=== PATIENT | female | born 1975 | race African-American/Black ===

== ENCOUNTER 2020-01-30 10:19 | Inpatient (IN) ==
--- NOTE | 2020-01-30 10:37 | PROVIDER DOCUMENTATION ---
HPI-General Adult - General Stated Complaint: KIDNEY PAIN Time Seen by Provider: 01/30/20 10:19 Source: patient Allergies/Adverse Reactions: Patient Allergies Allergy/AdvReac Type Severity Reaction Status Date / Time methylprednisolone Allergy SWELLING Verified 10/06/19 14:11 Home Medications: Home Medication List Medication Instructions Recorded Confirmed Last Taken Type Hydrochlorothiazide 25 mg PO DAILY 04/27/15 01/30/20 02/17/17 08:00 History Metformin [Glucophage] 500 mg PO BID 01/10/17 01/30/20 02/10/17 History Amlodipine Besylate [Norvasc] 5 mg PO DAILY #30 tab 12/26/17 01/30/20 Unknown Rx Clonazepam 1 tab PO BID 01/14/20 01/30/20 Unknown History Pregabalin 1 tab PO QHS 01/14/20 01/30/20 Unknown History Duloxetine HCl 60 mg PO DAILY 01/29/20 01/30/20 Unknown History - History of Present Illness -Gen Adult Nature of Presenting Problems: 44 yof with PMH of HTN, DM, Fibromyalgia c/o L abd, L flank and severe body aches for few days. Pt grandson and son, aged 5 & 7, had URI's recently but no other sick contacts. no hx of renal stones. She was seen here yesterday and reports she was supposed to be admitted due to UTI and fever in ER of 103. She reports she was also supposed to be tested for COVD 19 but did not stay and signed out AMA. She reports since leaving her symptoms have worsened with increasing back pain. She SOB, CP, N/V/D. She is anxious on exam Location of Pain/Injury: reports: abdomen (L abdomen and flank), generalized Pain Radiation: reports: no radiation Quality of Pain: reports: aching Severity: reports: severe Onset/Duration: reports: 4 days ago Timing: reports: still present Context/Activities at Onset: reports: none Modifying Factors: improves with: nothing Associated Symptoms: reports: back/neck pain, fever/chills, muscle aches. denies: chest pain, cough Recently seen or treated by another doctor?: Yes (here in ED on 01/28, left AMA) Review of Systems - Adult - REVIEW OF SYSTEMS - ADULT Constitutional: reports: chills, fever. denies: no symptoms reported, see HPI, fatique, night sweats, weight gain, weight loss, other Eyes: reports: no symptoms reported. denies: see HPI, discharge, dry eyes, decreased vision, blurred vision, double vision, eye pain, redness, other Ears, Nose, Mouth & Throat: reports: no symptoms reported. denies: see HPI, ear discharge, ear pain, hearing loss, tinnitus, epistaxis, sinus problem, nose pain, loose teeth, mouth/dental pain, mouth swelling, hoarseness, throat pain, throat swelling, other Cardiovascular: reports: no symptoms reported. denies: see HPI, chest pain, edema, heart murmur, irregular heart rate, orthopnea, palpitations, poor circ ulation, PND, syncope, other Respiratory: reports: no symptoms reported. denies: see HPI, chronic cough, cough, dyspnea on exertion, excessive sputum production, hemoptysis, pleurisy, shortness of breath, wheezing, other Gastrointestinal: reports: see HPI, abdominal pain. denies: no symptoms reported, hematemesis, constipation, diarrhea, difficulty swallowing, frequent heartburn, nausea, poor appetite, rectal bleeding, vomiting, other Genitourinary: reports: see HPI, flank pain, frequent UTI's. denies: no symptoms reported, dysuria, discharge, frequency, hematuria, hesitency, incontinence, urinary retention, urgency, other Musculoskeletal: reports: muscle aches. denies: no symptoms reported, see HPI, bone pain, back pain, frequent leg cramps, joint pain, joint swelling, muscle weakness, neck pain, other Integumentary: reports: no symptoms reported. denies: see HPI, hives, hair loss, itching, mole changes, nail changes, rash, skin sores/ulcer, skin thickening, other Neurological: reports: no symptoms reported. denies: see HPI, ataxia, dizziness/vertigo, headache/migraines, loss of balance, numbness, paresthesia, seizure, slurred speech, syncope, tremors, other Psychiatric: reports: no symptoms reported. denies: see HPI, anxiety, anti- depressant use, alcohol/drug dependence, depression, emotional problems, insomnia, panic attacks, suicidal thoughts, other Endocrine: reports: no symptoms reported. denies: see HPI, change in skin pigment, excessive sweating, goiter, cold intolerance, heat intolerance, increased hunger, increased thirst, polyuria, other Hematologic/Lymphatic: reports: no symptoms reported. denies: see HPI, blood clots, easy bruising, low blood count, lymphedema, prolonged bleeding, swollen lymph nodes, transfusions, other Allergic/Immunologic: reports: no symptoms reported. denies: see HPI, allergic reactions, allergic rhinitis, asthma, eczema, food allergy, frequent infections, hay fever, hives, positive PPD, urticaria, other Past History - Adult - PAST MEDICAL HISTORY-ADULT Review of Records: reports: Nursing Assessment Review, Social history reviewed & non-contributory. Major Childhood Illnesses: reports: denies history Cardiovascular: reports: HTN Respiratory: reports: asthma Gastrointestinal: reports: denies history Obstetrical/Gynecological: reports: denies history Genitourinary: reports: denies history Musculoskeletal: reports: chronic pain, fibromyalgia, intervertebral disc disease Neurological: reports: denies history Psychiatric: reports: anxiety, depression, ptsd Endocrine/Immune: reports: Diabetes, Sickle Cell disease (trait only) Other Conditions: reports: denies history Additional History: fibromyalgia - PRIOR SURGERIES/PROCEDURES Surgical/Procedure History: reports: BTL - IMMUNIZATION STATUS Childhood Immunizations: See Nurse Assessment Flu Vaccine: See Nurse Assessment - FAMILY HISTORY Family History: reviewed, not pertinent Physical Exam-General - PHYSICAL EXAM-ADULT Initial Vital Signs Reviewed: Yes - CONSTITUTIONAL General Appearance: alert, no apparent distress - EYES Eyes: PERRL/EOMI, pink conjunctivae - HEAD, EARS, NOSE, MOUTH & THROAT HENMT: normocephalic/atraumatic, moist mucous membranes, normal ENT inspection - NECK Neck: non-tender, full range of motion, supple - RESPIRATORY Respiratory: chest non-tender, lungs clear, normal breath sounds, no pleuratic chest pain, no respiratory distress, no accessory muscle use - CARDIOVASCULAR Cardiovascular: normal peripheral pulses, no edema, no gallop, no JVD, no murmur , tachycardia - GASTROINTESTINAL (ABDOMEN) Abdominal Exam: normal bowel sounds, soft, no organomegaly, no pulsatile mass, tenderness - LYMPHATIC Lymphatic: no adenopathy - MUSCULOSKELETAL Back Exam: CVA tenderness (L) Extremity: normal range of motion, non-tender, normal inspection, no pedal edema , no calf tenderness Peripheral Pulses: radial (R): 2+, radial (L): 2+ - SKIN Integumentary: normal color, normal turgor, warm/dry - NEUROLOGIC Neurologic: grossly normal - PSYCHIATRIC Psych/Mental Status: normal mood/affect, oriented x 3 Progress - PLAN OF CARE/RESULTS Progress/Plan/Lab Results: Orders Category Date Time Status Saline Loc NOW Care 01/30/20 10:30 Ordered BLOOD CULTURE [BLDCUL] Stat Lab 01/30/20 10:30 Uncollected CBC WITH ELECTRONIC DIFF [HEME] Stat Lab 01/30/20 10:30 Uncollected COMPREHENSIVE METABOLIC PANEL [CHEM] Stat Lab 01/30/20 10:30 Uncollected LACTATE, PLASMA [CHEM] Stat Lab 01/30/20 10:31 Uncollected UA NIMS W/REFLEX CULT [URINALYSIS] Stat Lab 01/30/20 10:31 Uncollected Result Diagrams: 01/30/20 11:04 01/30/20 11:04 - CT/MRI 1 CT Study: Abdomen, Pelvis Impression: See EMR Report (CT ABD/PELVIS W/IV CONT ONLY - 01/30/2020 INDICATION: abd pain, fever, flank pain COMPARISON: 06/21/2016 FINDINGS: The lung bases are clear and the heart size is normal. There is severe heterogeneous hypoenhancement of the left kidney. No renal stones or hydron ephrosis. All other abdominal organs are normal. No bowel obstruction or inflammation. Normal appendix. No severe constipation. Urinary bladder, uterus, and rectum are normal. There are moderate degenerative changes of the spine. No acute or suspicious bony lesion. IMPRESSION: Severe pyelonephritis of the left kidney. This exam was performed using automated exposure control, adjustment of mA or kV according to patient size, and/or use of iterative reconstruction technique Electronically signed by Abhi Gilbert 01/30/2020 12:42 PM 01/30/20 1242 Interpreting Physician: Abhi Gilbert MD Dictated Date/Time: 01/30/20 1241 cc: Annabel Freitas; Jb Guerrero) - CONSULTS/PCP/HOSPITALIST Notification #1 *Consult/PCP/Hospitalist*: Hospitalist paged @ [phone] Departure - Departure Date of Disposition Decision: 01/30/20 Time of Disposition Decision: 12:52 DIAGNOSIS: UTI (urinary tract infection), SIM (acute kidney injury), Pyelonephritis, Fever Disposition: ADMITTED INPATIENT 09 Certified Medical Emergency: Emergent Condition: Stable Referrals and Follow-Ups: Jb Guerrero [Primary Care Provider] - - Critical Care Note This patient required my direct & personal management of CC.: No Attestation - Physician/ REYNA Attestation Patient care was provided by Advanced Practice Provider:: Yes Advanced Practice Provider:: Annabel Freitas Advanced Practice Provider documentation review:: The Mid-level provider documentation, treatment plan and medical decision making was reviewed by the physician who agrees with all treatment and medical decision making by the MLP. The physician spent face to face time with patient:: No Advanced Practice Provider documentation review:: Supervising physician onsite and consulted in the evaluation and care of this patient. The physician did not have a face to face encounter with the patient.
[2020-01-30] MEDS ORDERED: NS 1,000 ML IV ONE (11:01)
[2020-01-30] MEDS ORDERED: TYLENOL PO ONE (11:02)
[2020-01-30] MEDS ORDERED: MORPHINE IV ONE (11:02)
[2020-01-30] MEDS ORDERED: ZOFRAN IV ONE (11:02)
[2020-01-30 11:28] LABS: BASO# 0.05 X1000 (0.0-0.2); BASO% 0.3 % (0.0-0.8); EOS# 0.02 X1000 (0.0-0.7); EOS% 0.1 % (0.0-10.0); HEMATOCRIT 33.7 % (37.0-47.0); HEMOGLOBIN 11.1 g/dL (12.0-16.0); IMM GRAN# 0.12 X1000 (0.0-0.04); IMM GRAN% 0.8 % (0.0-0.5); LYMPH# 0.79 X1000 (1.2-3.4); LYMPH% 5.4 % (20.5-51.1); MCH 24.7 PG (27-31); MCHC 32.9 g/dL (33-37); MCV 74.9 FL (81-99); MONO# 1.03 X1000 (0.11-0.59); MPV 10.3 FL (7.4-10.4); NEUT# 12.74 X1000 (1.4-6.5); NEUT% 86.4 % (42.2-75.2); PLT 223 X1000 (130-400); RDW 15.2 % (11.5-14.5); WBC 14.75 X1000 (4.8-10.8)
[2020-01-30] MEDS ORDERED: ROCEPHIN 2 GM in NS 50 ML IV ONE (11:32)
[2020-01-30 11:35] LABS: INR 1.1; PROTIME 14.3 Seconds (11.0-16.0)
[2020-01-30 11:36] LABS: PTT 33.7 Seconds (22.3-41.8)
[2020-01-30 11:45] LABS: ALB/GLOB RATIO 1.2; ALBUMIN 3.4 g/dL (3.5-5.0); CALCIUM 8.9 mg/dL (8.8-10.2); CREATININE 1.3 mg/dL (0.5-0.9); POTASSIUM 4.1 mmol/L (3.5-5.1); TOTAL BILIRUBIN 0.59 mg/dL (0.20-1.00); TOTAL PROTEIN 6.2 g/dL (6.3-8.3)
[2020-01-30] MEDS ORDERED: DILAUDID IV ONE (12:44)
--- NOTE | 2020-01-30 12:45 | Diag Imaging Result Doc PS360 ---
CT ABD/PELVIS W/IV CONT ONLY - 01/30/2020 INDICATION: abd pain, fever, flank pain COMPARISON: 06/21/2016 FINDINGS: The lung bases are clear and the heart size is normal. There is severe heterogeneous hypoenhancement of the left kidney. No renal stones or hydronephrosis. All other abdominal organs are normal. No bowel obstruction or inflammation. Normal appendix. No severe constipation. Urinary bladder, uterus, and rectum are normal. There are moderate degenerative changes of the spine. No acute or suspicious bony lesion. IMPRESSION: Severe pyelonephritis of the left kidney. This exam was performed using automated exposure control, adjustment of mA or kV according to patient size, and/or use of iterative reconstruction technique Electronically signed by Abhi Gilbert 01/30/2020 12:42 PM
[2020-01-30 12:49] LABS: URINE SOURCE CLEAN CATCH
[2020-01-30 12:51] LABS: BILIRUBIN URINE NEGATIVE (NEGATIVE); BLOOD URINE SMALL (NEGATIVE); COLOR YELLOW; GLUCOSE URINE NEGATIVE (NEGATIVE); KETONE URINE TRACE mg/dL (NEGATIVE); LEUKOCYTES URINE MODERATE (NEGATIVE); NITRITE URINE NEGATIVE (NEGATIVE); PH URINE 6.5; PROTEIN URINE 100 mg/dL (NEGATIVE); TURBIDITY URINE HAZY (CLEAR); UROBILINOGEN URINE 4 mg/dL (NORMAL)
[2020-01-30 12:56] LABS: UR EPITHELIAL CELLS <10 /HPF (<10); URINE BACTERIA 1+ /HPF; URINE RBC <10 /HPF (<10); URINE WBC 20-40 /HPF (<10)
[2020-01-30] MEDS ORDERED: KLONOPIN PO ONE (15:39)
[2020-01-30] MEDS: MORPHINE IV PRN ×2 (16:42→20:36)
[2020-01-30] MEDS: SODIUM CHLORIDE 0.9% INJ PRN (16:58)
[2020-01-30] MEDS: TYLENOL PO PRN (16:58)
[2020-01-30] MEDS: PHENERGAN IV PRN (16:58)
[2020-01-30] MEDS: NS 1,000 ML IV SCH (16:59)
[2020-01-30] MEDS: HUMALOG SUBQ SCH (17:24)
--- NOTE | 2020-01-30 20:10 | HISTORY AND PHYSICAL ---
CHIEF COMPLAINT: Fever, left flank pain. HISTORY OF PRESENT ILLNESS: This is a 44-year-old female with a history of fibromyalgia, chronic back pain, hypertension, and sickle cell trait. She presents to the emergency room for the second time in 24 hours complaining of generalized body aches, fevers as high as 103, along with some dysuria. She states that she has been diagnosed with a UTI by her primary care physician. She took a round of amoxicillin in November followed by another antibiotic that she does not remember the name of. She presented to the emergency room last night, was being evaluated, was approached about being tested for Coronavirus disease-19, having IV fluids and IV antibiotics and being admitted. She stated that she became anxious and that she was unable to stay because she has children, grandchildren, and foster children that she keeps at home, and she had to make sure that they were taken care of. She got her children situated and returned to the emergency room today. She had a temperature of 102.4 degrees on arrival to the emergency room. CT of the abdomen and pelvis with IV contrast revealed severe pyelonephritis of the left kidney. PAST MEDICAL HISTORY: Fibromyalgia, chronic back pain, diabetes mellitus type 2, hypertension, sickle cell trait. PAST SURGICAL HISTORY: Tubal ligation. SOCIAL HISTORY: She smokes about a half a pack a day. Denies alcohol or illicit drug use. She does have children, grandchildren, and foster children that she takes care of at home. ALLERGIES: Prednisone, which makes her throat and face swell and she does not breathe well. She does state it is a certain brand of prednisone. HOME MEDICATIONS: A list will be obtained by the nursing staff. Once verified, we will review and restart as appropriate. REVIEW OF SYSTEMS: Discussed with patient with pertinent positives stated in the HPI. She denied any syncope, dizziness, chest pain, palpitations, any nausea, vomiting, diarrhea, constipation, any black or bloody vomitus or stools, any hematuria, dysuria, frequency, urgency. PHYSICAL EXAMINATION: GENERAL: This is a 44-year-old female who is sitting up on the side of the bed in the ER in no distress. VITAL SIGNS: Blood pressure is 118/74 with a heart rate of 100, respirations are 18, temperature is 99.8 degrees, with room air saturations 98%. EYES: Pupils equal, round, react to light. EOMs are intact. Sclerae anicteric. HEAD: Normocephalic and atraumatic. ENT: Mucous membranes moist. NECK: Supple. Trachea midline. CARDIOVASCULAR: Regular rate and rhythm. S1, S2 appreciated. She has no lower extremity edema. Calves are nontender bilateral. PULMONARY: Breath sounds clear. No increased work of breathing noted. Chest rises and falls symmetrically with respiration. GASTROINTESTINAL: Abdomen is soft, nontender, and nondistended with bowel sounds in all 4 quadrants. GENITOURINARY: She has left CVA tenderness. Bladder is nontender to palpation. NEUROLOGIC: She is alert and oriented x3. SKIN: Warm and dry. LABS: WBC is 14.7 with hemoglobin 11, hematocrit 33.7, and platelets 223,000. Sodium 137, potassium 4.1, BUN 11, creatinine 1.3 with a glucose of 135. Urinalysis reveals less than 10 microscopic red blood cells, epithelial cells, with 1+ bacteria, and 20 to 40 microscopic white blood cells. Urine culture is pending. Blood cultures are pending. CT of the abdomen and pelvis reveals severe pyelonephritis of the left kidney. ASSESSMENT AND PLAN: This is a 44-year-old female with: 1. Severe pyelonephritis. Cultures are pending. Give antibiotic coverage of Rocephin with further antibiotics culture driven. 2. Flank pain. Morphine intravenously. 3. History of anxiety. We will continue her Klonopin. 4. Diabetes mellitus type 2. Pattern blood glucose with sliding scale insulin. 5. Hypertension. We will continue home medications as appropriate. 6. Check a CBC, BMP in the morning. She will be placed on a diabetic diet. Continue with intravenous hydration. 7. Gastric acid suppression with Prilosec. 8. Further treatments pending hospital course. Dictated by MARIYA Cruz for Rj Lester MD cc: MARIYA Cruz MD
[2020-01-30] MEDS: KLONOPIN PO SCH (20:36)
[2020-01-30] MEDS: LYRICA PO SCH (20:36)
[2020-01-31] MEDS: TYLENOL PO PRN ×2 (00:18→19:28)
[2020-01-31] MEDS: HUMALOG SUBQ SCH ×5 (00:25→21:34)
[2020-01-31] MEDS ORDERED: OFIRMEV 1000 MG/ISOTONIC SOLN 1,000 MG/100 ML BOTTLE IV ONE (00:30)
[2020-01-31] MEDS ORDERED: MOTRIN PO ONE (00:32)
[2020-01-31] MEDS: MORPHINE IV PRN ×3 (02:49→13:32)
[2020-01-31] MEDS: ZOSYN 3.375 GM in NS 50 ML IV SCH ×5 (02:50→21:34)
[2020-01-31] MEDS: NS 1,000 ML IV SCH ×3 (06:06→17:43)
[2020-01-31 07:30] LABS: BASO# 0.02 X1000 (0.0-0.2); BASO% 0.2 % (0.0-0.8); EOS# 0.03 X1000 (0.0-0.7); EOS% 0.4 % (0.0-10.0); HEMATOCRIT 30.1 % (37.0-47.0); HEMOGLOBIN 9.8 g/dL (12.0-16.0); IMM GRAN# 0.02 X1000 (0.0-0.04); IMM GRAN% 0.2 % (0.0-0.5); LYMPH% 11.9 % (20.5-51.1); MCH 24.6 PG (27-31); MCHC 32.6 g/dL (33-37); MCV 75.6 FL (81-99); MONO# 0.82 X1000 (0.11-0.59); MONO% 9.8 % (1.7-9.3); MPV 11.1 FL (7.4-10.4); NEUT% 77.5 % (42.2-75.2); PLT 217 X1000 (130-400); RBC 3.98 XMIL (4.2-5.4); RDW 15.4 % (11.5-14.5); WBC 8.39 X1000 (4.8-10.8)
[2020-01-31] MEDS: PRILOSEC PO SCH (07:41)
[2020-01-31 07:52] LABS: CALCIUM 8.5 mg/dL (8.8-10.2); CREATININE 1.2 mg/dL (0.5-0.9); POTASSIUM 4.3 mmol/L (3.5-5.1)
[2020-01-31] MEDS ORDERED: HYDROCHLOROTHIAZIDE PO SCH (09:00)
[2020-01-31] MEDS: NORVASC PO SCH (09:50)
[2020-01-31] MEDS: KLONOPIN PO SCH ×2 (09:50→20:33)
[2020-01-31] MEDS: TORADOL IV PRN ×2 (11:11→16:25)
[2020-01-31] MEDS ORDERED: ROCEPHIN 1 GM in NS 50 ML IV SCH (13:00)
[2020-01-31] MEDS: PHENERGAN IV PRN (16:16)
[2020-01-31] MEDS: SODIUM CHLORIDE 0.9% INJ PRN (16:16)
[2020-01-31] MEDS: DILAUDID IV PRN ×3 (17:42→23:49)
--- NOTE | 2020-01-31 17:50 | PROGRESS NOTE ---
DATE: 01/31/2020 SUBJECTIVE: The patient is still complaining of pain. OBJECTIVE: She is still having fevers. She was up to 102.4, 104.5. Cardiovascular: Regular rate and rhythm. Pulmonary: Bilateral breath sounds clear to auscultation. GI: Soft, nontender, nondistended. Bowel sounds were positive. LABORATORY DATA: White count is 8, hemoglobin and hematocrit 9 and 30, platelets 217,000, creatinine 1.2. Micro: No growth from urine and her blood culture was positive with gram- negative rods, which is not unexpected. PROBLEM LIST: 1. Acute pyelo of the left kidney, so we will continue antibiotics. The patient is on Zosyn. She has some mild renal insufficiency so I do not think we can use gentamicin or ibuprofen. I am going to hold her hydrochlorothiazide. I am going to hold her Toradol. She is on Tylenol as an antipyretic. She is on morphine, but I am not really sure that is going to be effective enough so we will use Dilaudid and see how she does. 2. Acute on chronic renal insufficiency. I am going to continue hydration because I think she needs fluids, especially with her persistent fevers. I think if she is still has persistent fevers, there is no clear abscesses as read on the CT scan, but there was heterogenous enhancement. We will need to either re-image her or consider urology consult at the discretion of the covering physician. 3. Diabetes. We will continue to monitor blood sugars, trying to keep them under 200. She is on a sliding scale. Her A1c, we have not analyzed and her blood sugars actually seem fairly well controlled. cc: Rj Lester MD
[2020-01-31] MEDS: LYRICA PO SCH (20:33)
[2020-01-31] MEDS ORDERED: NICODERM PATCH TD PRN (21:04)
[2020-02-01] MEDS: OFIRMEV 1000 MG/ISOTONIC SOLN 1,000 MG/100 ML BOTTLE IV PRN ×2 (02:48→10:39)
[2020-02-01] MEDS: NS 1,000 ML IV SCH ×3 (02:51→21:00)
[2020-02-01] MEDS: DILAUDID IV PRN ×5 (03:34→17:43)
[2020-02-01] MEDS: ZOSYN 3.375 GM in NS 50 ML IV SCH ×2 (03:34→09:46)
[2020-02-01] MEDS: PRILOSEC PO SCH (06:35)
[2020-02-01] MEDS: HUMALOG SUBQ SCH ×4 (06:38→20:59)
[2020-02-01 07:15] LABS: BASO# 0.03 X1000 (0.0-0.2); BASO% 0.3 % (0.0-0.8); EOS# 0.05 X1000 (0.0-0.7); EOS% 0.4 % (0.0-10.0); HEMATOCRIT 31.1 % (37.0-47.0); HEMOGLOBIN 10.1 g/dL (12.0-16.0); IMM GRAN# 0.03 X1000 (0.0-0.04); IMM GRAN% 0.3 % (0.0-0.5); LYMPH# 1.55 X1000 (1.2-3.4); LYMPH% 13.9 % (20.5-51.1); MCH 24.5 PG (27-31); MCHC 32.5 g/dL (33-37); MCV 75.3 FL (81-99); MONO# 1.48 X1000 (0.11-0.59); MONO% 13.3 % (1.7-9.3); MPV 10.9 FL (7.4-10.4); NEUT# 8.02 X1000 (1.4-6.5); NEUT% 71.8 % (42.2-75.2); PLT 226 X1000 (130-400); RBC 4.13 XMIL (4.2-5.4); RDW 15.6 % (11.5-14.5); WBC 11.16 X1000 (4.8-10.8)
[2020-02-01 07:45] LABS: AGAP 14; BUN 10 mg/dL (8-22); CALCIUM 8.2 mg/dL (8.8-10.2); CHLORIDE 104 mmol/L (98-107); COSMO 279; CREATININE 1.1 mg/dL (0.5-0.9); ESTIMATED GFR > 60; GLUCOSE 142 mg/dL (70-104); POTASSIUM 3.8 mmol/L (3.5-5.1); SODIUM 139 mmol/L (136-145); TCO2 21 mmol/L (25-35)
[2020-02-01 07:50] LABS: HEMOGLOBIN A1C 5.4 % (4.8-6.0)
[2020-02-01] MEDS ORDERED: NITROGLYCERIN SL PRN (09:36)
[2020-02-01] MEDS: NORVASC PO SCH (09:46)
[2020-02-01] MEDS: CYMBALTA PO SCH (09:46)
[2020-02-01] MEDS: KLONOPIN PO SCH ×2 (09:46→20:58)
[2020-02-01] MEDS: XOPENEX NEB INH SCH ×4 (10:50→23:50)
[2020-02-01] MEDS: MAXIPIME 2 GM/NS 2 GM/100 ML IVPB IV SCH (13:08)
--- NOTE | 2020-02-01 13:24 | Diag Imaging Result Doc PS360 ---
EXAM: SHOULDER-LEFT HISTORY: pain TECHNIQUE: Two views COMPARISON: 01/29/2015 FINDINGS: No fracture. No dislocation. Mild narrowing at the acromioclavicular joint. IMPRESSION: Mild acromioclavicular arthritis Electronically signed by Seng Macedo 02/01/2020 1:21 PM
--- NOTE | 2020-02-01 15:51 | Diag Imaging Result Doc PS360 ---
EXAM: CHEST-2 VIEWS HISTORY: required to have current Chest XRAY to have a TECHNIQUE: Two views COMPARISON: 01/29/2020 FINDINGS: The lungs are well expanded. The heart is not enlarged. The vessels are not distended. There are no infiltrates. No pleural effusions. IMPRESSION: No acute abnormality. Electronically signed by Seng Macedo 02/01/2020 3:49 PM
--- NOTE | 2020-02-01 16:06 | Diag Imaging Result Doc PS360 ---
EXAM: LUNG SCAN / VQ HISTORY: pleuritic TECHNIQUE: Perfusion lung scan COMPARISON: Recent chest x-ray FINDINGS: 5.8 mCi MAA given intravenously. Perfusion images obtained in multiple projections. No wedge shaped perfusion defects. IMPRESSION: No pulmonary emboli. Electronically signed by Seng Macedo 02/01/2020 4:03 PM
[2020-02-01] MEDS: PERCOCET-5 PO PRN ×2 (16:16→20:58)
--- NOTE | 2020-02-01 16:51 | EKG Report ---
Test Performed on : 02/01/2020 09:51:27 AM Test Reason : CP Blood Pressure : / mmHG Vent. Rate : 095 BPM Atrial Rate : 095 BPM P-R Int : 156 ms QRS Dur : 078 ms QT Int : 330 ms P-R-T Axes : 055 071 001 degrees QTc Int : 414 ms Normal sinus rhythm. Normal ECG When compared with ECG of 20-MAR-2019 03:04, No significant change was found Confirmed by Maxine JAQUEZ, Boo Lomax ([id number]) on 02/03/2020 9:25:03 AM
--- NOTE | 2020-02-01 17:51 | PROGRESS NOTE ---
DATE: 02/01/2020 SUBJECTIVE: The patient is resting comfortably. She complains of fever and left shoulder pain that extends into the chest. OBJECTIVE: Vital signs: T-max 102.4 degrees, blood pressure 145/65, heart rate 101, respirations 21, O2 saturation 96% on room air. In general this is a morbidly obese female, sitting up in bed in no acute distress.Heart: S1, S2 normal. Tachycardic. Lungs clear to auscultation bilaterally. Abdomen: Positive bowel sounds. Soft, nontender, nondistended. Extremities: No edema, no cyanosis. Neurologic: The patient is alert and oriented x3. LABORATORY DATA: White blood cell count 11, hemoglobin 10, hematocrit 31, platelets 226,000. Sodium 139, BUN 10, creatinine 1.1, glucose 142. Hemoglobin A1c 5.4. Calcium 8.2. DIAGNOSTIC DATA: Shoulder x-ray shows mild arthritis. ASSESSMENT AND PLAN: 1. Sepsis with severe left pyelonephritis. So far the urine culture shows no growth; however, one of the blood cultures is growing gram-negative rods. We will switch the patient to cefepime and await the final culture results. 2. Bacteremia. Continue on Cefepime. Will order repeat blood cultures. 3. Left shoulder pain. The x-ray done reveals arthritis; however, the patient states that she cannot lift her arm above her head. She may need an MRI of the shoulder to further assess the joint and the ligaments. 4. Morbid obesity. Aware. 5. Hypertension. Continue on the current antihypertensive regimen. 6. Anxiety disorder. Continue on clonazepam. 7. Deep vein thrombosis prophylaxis. We will start the patient on heparin. cc: Maddy Lopez MD [facility]
[2020-02-01] MEDS: HEPARIN SUBQ SCH (20:59)
[2020-02-01] MEDS: LYRICA PO SCH (20:59)
[2020-02-02] MEDS: DILAUDID IV PRN ×6 (00:01→22:33)
[2020-02-02] MEDS: TYLENOL PO PRN (00:01)
[2020-02-02] MEDS: MAXIPIME 2 GM/NS 2 GM/100 ML IVPB IV SCH ×2 (00:01→14:54)
[2020-02-02] MEDS: NS 1,000 ML IV SCH ×3 (00:41→20:36)
[2020-02-02] MEDS: PERCOCET-5 PO PRN ×4 (00:55→20:07)
[2020-02-02] MEDS: PHENERGAN IV PRN (00:55)
[2020-02-02] MEDS: XOPENEX NEB INH SCH ×6 (03:34→23:32)
[2020-02-02] MEDS: HUMALOG SUBQ SCH ×4 (06:23→20:07)
[2020-02-02] MEDS: PRILOSEC PO SCH (06:23)
[2020-02-02] MEDS: HEPARIN SUBQ SCH ×3 (06:23→22:00)
[2020-02-02 07:05] LABS: BASO# 0.03 X1000 (0.0-0.2); BASO% 0.3 % (0.0-0.8); EOS# 0.05 X1000 (0.0-0.7); EOS% 0.5 % (0.0-10.0); HEMATOCRIT 28.4 % (37.0-47.0); HEMOGLOBIN 9.2 g/dL (12.0-16.0); IMM GRAN# 0.04 X1000 (0.0-0.04); IMM GRAN% 0.4 % (0.0-0.5); LYMPH# 1.94 X1000 (1.2-3.4); LYMPH% 19.7 % (20.5-51.1); MCH 24.4 PG (27-31); MCHC 32.4 g/dL (33-37); MCV 75.3 FL (81-99); MONO# 1.02 X1000 (0.11-0.59); MONO% 10.3 % (1.7-9.3); MPV 10.8 FL (7.4-10.4); NEUT# 6.79 X1000 (1.4-6.5); NEUT% 68.8 % (42.2-75.2); PLT 243 X1000 (130-400); RBC 3.77 XMIL (4.2-5.4); RDW 15.6 % (11.5-14.5); WBC 9.87 X1000 (4.8-10.8)
[2020-02-02 07:18] LABS: AGAP 11; ALB/GLOB RATIO 0.8; ALBUMIN 2.7 g/dL (3.5-5.0); ALKALINE PHOSPHATASE 96 U/L (32-104); BUN 6 mg/dL (8-22); CALCIUM 8.7 mg/dL (8.8-10.2); CHLORIDE 101 mmol/L (98-107); COSMO 266; CREATININE 0.9 mg/dL (0.5-0.9); ESTIMATED GFR > 60; GLUCOSE 108 mg/dL (70-104); GOT 21 U/L (10-30); GPT 23 U/L (10-36); SODIUM 134 mmol/L (136-145); TCO2 22 mmol/L (25-35); TOTAL BILIRUBIN 0.29 mg/dL (0.20-1.00); TOTAL PROTEIN 6.1 g/dL (6.3-8.3)
[2020-02-02 07:35] LABS: ANISOCYTOSIS 3+; HYPOCHROM 2+; LYMPHS 19 % (21-51); MICROCYTOSIS 3+; MONO 10 % (1-9); SEGS 68 % (42-75)
[2020-02-02 07:36] LABS: POIKILOCYTOSIS 1+
[2020-02-02] MEDS: KLONOPIN PO SCH ×2 (08:23→20:07)
[2020-02-02] MEDS: CYMBALTA PO SCH (08:23)
[2020-02-02] MEDS: NORVASC PO SCH (08:23)
[2020-02-02] MEDS: CULTURELLE PO SCH (08:27)
[2020-02-02] MEDS: OFIRMEV 1000 MG/ISOTONIC SOLN 1,000 MG/100 ML BOTTLE IV PRN (11:11)
--- NOTE | 2020-02-02 11:21 | Diag Imaging Result Doc PS360 ---
EXAM: US RENAL 2 (RETROPER) COMPLETE - 02/02/2020 HISTORY: severe pyelonephritis TECHNIQUE: Bilateral renal ultrasound COMPARISON: None. FINDINGS: The right kidney measures 13.1 x 6.1 x 5.1 cm in size. The left kidney measures 14.1 x 6.9 x 6.6 cm in size. The bilateral kidneys demonstrate blood flow signal on Doppler images. There is no renal mass or stone identified. There is no hydronephrosis or perinephric fluid identified. The urinary bladder is evaluated due to contracted state. IMPRESSION: Mild enlargement of left kidney relative to the right. No evidence of hydronephrosis or perinephric fluid Electronically signed by Patrick Garcia 02/02/2020 11:19 AM
--- NOTE | 2020-02-02 16:35 | PROGRESS NOTE ---
DATE: 02/02/2020 SUBJECTIVE: The patient complains of left shoulder pain and a poor appetite. OBJECTIVE: Vital Signs: Temperature 99.1 degrees, blood pressure 141/76, heart rate 110, respirations 20, O2 saturation 97% on room air, intake 5 L, output 1.1 L. General: This is a morbidly obese female lying in bed in no acute distress. Heart: S1, S2. Normal. Tachycardic. Lungs: Equal air entry bilaterally. No wheezing, no rales, no rhonchi. Abdomen: Positive bowel sounds. Soft, obese, nontender, nondistended. Extremities: No edema, no cyanosis, no calf tenderness. Neuro: The patient is alert and oriented x3. LABS: White blood cell count 9.8, hemoglobin 9.2, hematocrit 28, platelets 243,000. Sodium 134, potassium 4, chloride 101, CO2 22, BUN 6, creatinine 0.9, glucose 108. Renal ultrasound shows mild enlargement of the left kidney relative to the right. No evidence of hydronephrosis or perinephric fluid. ASSESSMENT AND PLAN: 1. Sepsis secondary to severe left pyelonephritis. The blood culture grew out Escherichia coli. The urine culture shows no growth. Will continue with cefepime. 2. Bacteremia secondary to Escherichia coli. Will continue on cefepime. Repeat blood cultures were obtained yesterday. Will follow up on the culture results. 3. Left shoulder pain. Unchanged. The x-ray shows arthritis. The patient may need an MRI of the shoulder to further assess the tendons and ligaments. 4. Morbid obesity. Aware. 5. Anxiety disorder. Continue on clonazepam. 6. Diabetes mellitus type 2. Diet controlled. 7. Deep vein thrombosis prophylaxis. Continue on heparin. cc: MD ARIAS Stephens
[2020-02-02] MEDS: LYRICA PO SCH (20:07)
[2020-02-03] MEDS: NS 1,000 ML IV SCH ×3 (03:05→18:31)
[2020-02-03] MEDS: DILAUDID IV PRN ×6 (03:10→22:31)
[2020-02-03] MEDS: MAXIPIME 2 GM/NS 2 GM/100 ML IVPB IV SCH ×2 (03:13→17:48)
[2020-02-03] MEDS: XOPENEX NEB INH SCH ×6 (03:31→23:30)
[2020-02-03] MEDS: PERCOCET-5 PO PRN ×3 (04:09→15:12)
[2020-02-03] MEDS: HEPARIN SUBQ SCH ×3 (04:09→21:23)
[2020-02-03] MEDS: PRILOSEC PO SCH ×2 (04:10→06:03)
[2020-02-03] MEDS: HUMALOG SUBQ SCH ×4 (06:03→22:03)
--- NOTE | 2020-02-03 07:07 | Diag Imaging Result Doc PS360 ---
EXAM: CHEST-1 VIEW INDICATION: dyspnea TECHNIQUE: One view COMPARISON: 02/01/2020 FINDINGS: The lungs are grossly clear. There is no discrete pleural fluid collection or pneumothorax. The cardiomediastinal silhouette and central vasculature are grossly unremarkable. IMPRESSION: No evidence of acute pathology by plain radiograph. Electronically signed by Dennis Rodriguez 02/03/2020 7:05 AM
[2020-02-03 07:41] LABS: BASO# 0.05 X1000 (0.0-0.2); BASO% 0.5 % (0.0-0.8); HEMATOCRIT 26.8 % (37.0-47.0); HEMOGLOBIN 8.7 g/dL (12.0-16.0); IMM GRAN# 0.09 X1000 (0.0-0.04); IMM GRAN% 0.9 % (0.0-0.5); LYMPH# 1.78 X1000 (1.2-3.4); LYMPH% 18.1 % (20.5-51.1); MCH 24.2 PG (27-31); MCHC 32.5 g/dL (33-37); MCV 74.7 FL (81-99); MONO# 1.07 X1000 (0.11-0.59); MONO% 10.9 % (1.7-9.3); MPV 10.8 FL (7.4-10.4); NEUT# 6.76 X1000 (1.4-6.5); NEUT% 68.6 % (42.2-75.2); PLT 298 X1000 (130-400); RBC 3.59 XMIL (4.2-5.4); RDW 15.4 % (11.5-14.5); WBC 9.85 X1000 (4.8-10.8)
[2020-02-03 08:12] LABS: AGAP 13; BUN 7 mg/dL (8-22); CALCIUM 8.3 mg/dL (8.8-10.2); CHLORIDE 105 mmol/L (98-107); COSMO 277; CREATININE 0.7 mg/dL (0.5-0.9); ESTIMATED GFR > 60; GLUCOSE 92 mg/dL (70-104); POTASSIUM 4.2 mmol/L (3.5-5.1); SODIUM 140 mmol/L (136-145); TCO2 22 mmol/L (25-35)
[2020-02-03 08:13] LABS: MAGNESIUM 2.3 mg/dL (1.5-2.7)
[2020-02-03 08:45] LABS: BANDS 4 % (0-1); LYMPHS 20 % (21-51); MONO 6 % (1-9); SEGS 70 % (42-75)
[2020-02-03 08:46] LABS: LARGE PLATELETS 1+; MICROCYTOSIS 3+; TARGET CELLS 1+
[2020-02-03 08:47] LABS: FERRITIN 249 ng/mL (13-150)
[2020-02-03] MEDS: KLONOPIN PO SCH ×2 (09:41→21:24)
[2020-02-03] MEDS: NORVASC PO SCH (09:42)
[2020-02-03] MEDS: CULTURELLE PO SCH (09:42)
[2020-02-03] MEDS: CYMBALTA PO SCH (09:42)
--- NOTE | 2020-02-03 09:52 | Diag Imaging Result Doc PS360 ---
EXAM: MRI UPPER EXT W/O CONTRA-LEFT 02/03/2020 HISTORY: left arm pain/possible rotator cuff tear TECHNIQUE: Axial 2-D merge, coronal proton density fat sat, T1, STIR, T2 fat sat sagittal. COMMENT: There are mild degenerative changes in the acromioclavicular joint. There are subcortical cysts present near the greater tuberosity. The long head of the biceps tendon is intact. The supraspinatus and infraspinatus muscles and tendons are intact. There is slight irregularity of the anterior glenoid labrum. The possibility of a small tear cannot be excluded. There is very little fluid in the joint space. There is no evidence of bone marrow edema. IMPRESSION: Mild degenerative changes. Questionable anterior glenoid labral tear. Electronically signed by Mohan Gudino 02/03/2020 9:50 AM
--- NOTE | 2020-02-03 11:58 | ORTHOPAEDICS CONSULTATION ---
DATE: 02/03/2020 REASON FOR CONSULTATION: Left shoulder pain. HISTORY OF PRESENT ILLNESS: Ms. Blanco is a 44-year-old female with a history of fibromyalgia, chronic back pain, hypertension, and a sickle cell trait. She originally presented to the [facility] Emergency Room complaining of generalized body aches and elevated fevers. She was diagnosed with a UTI and has been getting antibiotic treatment since then. While she has been in the hospital receiving IV antibiotics, she started complaining of left shoulder pain. She denied any fall or injury to the shoulder. She denies a history of shoulder pain. She states it just started bothering her in the last 2 days. She has been unable to raise the arm over her head. Otherwise, she can do some things with the shoulder. Orthopedics has been consulted for management of the shoulder. PAST MEDICAL HISTORY: 1. Fibromyalgia. 2. Chronic back pain. 3. Type 2 diabetes mellitus. 4. Primary essential hypertension. 5. Sickle cell trait. PAST SURGICAL HISTORY: Tubal ligation. SOCIAL HISTORY: She does smoke about 1/2 pack a day. She denies alcohol or illicit drug use. She does live at home with her children and grandchildren. She also has foster children that she takes care of. ALLERGIES: Prednisone that makes her face and throat swell. HOME MEDICATIONS: Norvasc 5 mg p.o. daily, Klonopin 1 mg p.o. b.i.d., Cymbalta 60 mg p.o. daily, Prilosec 40 mg p.o. daily, Lyrica 75 mg p.o. every night at bedtime. REVIEW OF SYSTEMS: A 10-point review of systems was conducted and that is what is mentioned above in the HPI. PHYSICAL EXAMINATION: Vital Signs: Her temperature is 99.3 degrees, her pulse is 99, her blood pressure is 134/78, she is 100% on room air. General: This is a 44-year-old female in no acute distress. Neurological: She is alert and oriented x3 with no focal deficits. HEENT: Head is atraumatic, normocephalic. Pupils are equal, round, reactive to light. Cardiovascular: Regular rate and rhythm. Pulmonary: Breathing is even and nonlabored with equal chest rise. Abdomen: Appears nondistended. Extremities: The left upper extremity is tender to palpation at the shoulder. It is pretty much diffuse tenderness there. Her hand intrinsics are intact. She has a 2+ radial pulse. She does have limited range of motion related to pain. I was unable to do a complete exam related to her pain. It does seem to be overhead and abduction that bothers her the most. She did have some trouble with external rotation as well. Left lower extremity exam, she does also complain of some tenderness to palpation where the plantar fascia inserts the calcaneus. She has been told she has a heel spur there. No pain with a heel squeeze. Good sensation to the foot. No skin ulcerations or abrasions. IMAGING STUDIES: A shoulder x-ray did show mild AC arthritis. An MRI of the left shoulder showed similar changes, mild degenerative changes and a questionable glenoid labral tear that appears chronic in nature. This was reviewed and interpreted by Dr. Shahid as well. ASSESSMENT: 1. Left acromioclavicular arthritis. 2. Left plantar fasciitis. PLAN: We did discuss possibly doing a Depo-Medrol injection. However, she does have an allergy to prednisone that causes facial and throat swelling. Because of this, we do not want to pursue with a steroid injection. We are going to try to do physical therapy and have them start working on passive range of motion with her and gradually increase her activity level. We are also going to try a heavy dose of indomethacin to see if we can calm things down. We will try both of these things and see how she tolerates them. We will have her follow up as an outpatient in the office. Hopefully, she will be discharged soon and can follow up with Dr. Shahid. Thank you for the consult. Please let us know if you need anything further. Dictated by MARIYA Leon for Perico Shahid MD cc: MARIYA Leon
[2020-02-03] MEDS: INDOCIN PO SCH ×2 (12:45→21:24)
[2020-02-03] MEDS ORDERED: FOLIC ACID PO ONE (13:28)
--- NOTE | 2020-02-03 13:46 | PROGRESS NOTE ---
DATE: 02/03/2020 SUBJECTIVE: The patient complains of pain in her left neck and shoulder. She is afebrile. OBJECTIVE: Vital Signs: Temperature 98 degrees, blood pressure 119/71, heart rate 96, respirations 18, O2 saturation 94% on room air. Intake 1.9 L. Output 1.8 L. General: This is a morbidly obese female lying in bed in no acute distress. Heart: S1, S2 normal. Regular rate and rhythm. Lungs: Clear to auscultation bilaterally. No wheezing. No rales. No rhonchi. Abdomen: Positive bowel sounds. Soft, obese, nontender, nondistended. Extremities: No edema, no cyanosis. Neurologic: The patient is alert and oriented x3. LABS: White blood cell count 9.8, hemoglobin 8.7, hematocrit 26, platelets 298,000. Sodium 140, potassium 4.2, chloride 105, CO2 22, BUN 7, creatinine 0.7, glucose 149. IMAGING: Upper extremity MRI reveals a questionable anterior glenoid labral tear. ASSESSMENT AND PLAN: 1. Sepsis secondary to severe left pyelonephritis. Presumptively, this is probably secondary to Escherichia coli since the blood culture grew out Escherichia coli. We will continue with cefepime. Can likely transition the patient to oral antibiotic therapy once the repeat blood cultures come back. 2. Bacteremia secondary to Escherichia coli. The patient is currently on cefepime. The repeat blood cultures remain negative so far. 3. Left acromioclavicular arthritis. The patient has been seen by the orthopedic surgery service and they recommend starting the patient on indomethacin and physical therapy. We will continue to monitor the patient's response to this regimen. 4. Fibromyalgia. Aware. 5. Morbid obesity. Aware. 6. Anxiety disorder. Continue on clonazepam. 7. Folate deficiency. We will start the patient on folic acid replacement. 8. Iron deficiency anemia. We will start the patient on iron replacement. 9. Diabetes mellitus type 2. Diet controlled. 10. Deep vein thrombosis prophylaxis. Continue on heparin. cc: Maddy Lopez MD MTDD
--- NOTE | 2020-02-03 18:32 | ORTHOPAEDICS PROGRESS NOTE ---
DATE: 02/03/2020 SUBJECTIVE: Please see the orthopedic consultation note for detailed history and physical exam. Briefly, this is a 44-year-old lady who has been admitted to the hospital for UTI and sepsis growing Escherichia coli bacteremia. Orthopedic Surgery was consulted today for complaint of left- sided neck pain and shoulder pain that has been going on for the last couple of days. MRI and x- rays were ordered by primary care team prior to consultation. The patient states she has not had any issues of left shoulder pain in the past. She denies any numbness, tingling or shooting pain down into her hands. She states she just took a shower and her shoulder is feeling much better since getting out of the shower. She has no other complaints. She is right-hand dominant. OBJECTIVE: Vital Signs: Afebrile. Vital signs stable. HEENT: Normocephalic and atraumatic. Respiratory: Nonlabored breathing. Cardiovascular: Regular rate and rhythm. Extremities: Examination of left upper extremity shows skin to be intact. Patient has some mild tenderness to palpation on the left lateral chest wall and lateral aspect of the breast. She is nontender in her axilla. She is nontender over her acromioclavicular joint, anterior superior shoulder, and posterior aspect of the shoulder. She has passive shoulder range of motion 170 degrees forward flexion, 60 degrees external rotation, internal rotation to lower lumbar spine. Mildly positive Monson and Neer impingement signs. She has some weakness with rotator cuff testing. However, I think this is secondary to pain. Arm and forearm are soft and compressible. Motor is intact AIN, PIN and ulnar nerve distribution. Sensation intact to light touch to median, radial, ulnar, axillary nerves. Radial pulse palpable and equal bilaterally. LABORATORY DATA: White count 10, hematocrit 27. IMAGING: MRI of the left shoulder was reviewed demonstrating no acute osseous abnormalities. She has some small subcortical cysts at the footprint of the rotator cuff insertion on the greater tuberosity. The biceps tendon is intact. No signs of rotator cuff tear. She does have concern for possible small anterior glenoid labral tear. However, this is a noncontrasted study so it is hard to tell for sure. No signs of Hill-Sachs lesion. ASSESSMENT: A 44-year-old female with left shoulder pain, likely secondary to bursitis and acromioclavicular arthritis. She also has complaint of left foot pain concerning for plantar fasciitis. PLAN: A long discussion was had with the patient regarding diagnosis and treatment options. She is allergic to prednisone, so is unable to get any type of steroid injection, which I think would provide her some relief. We will go ahead and start her on indomethacin for a few days to calm things down. We will get physical therapy to work with her on range of motion and strengthening program. I will plan on seeing her in clinic next week for further evaluation. She is planning on being discharged home tomorrow. Thank you for the consultation.
[2020-02-03] MEDS: ICAR-C PO SCH (21:24)
[2020-02-03] MEDS: LYRICA PO SCH (21:25)
[2020-02-04] MEDS: PERCOCET-5 PO PRN ×3 (00:42→12:21)
[2020-02-04] MEDS: DILAUDID IV PRN ×4 (02:07→13:44)
[2020-02-04] MEDS: MAXIPIME 2 GM/NS 2 GM/100 ML IVPB IV SCH (02:19)
[2020-02-04] MEDS: XOPENEX NEB INH SCH ×3 (03:30→11:18)
[2020-02-04] MEDS: PRILOSEC PO SCH ×2 (04:18→06:01)
[2020-02-04] MEDS: HEPARIN SUBQ SCH ×2 (04:18→12:22)
[2020-02-04] MEDS: NS 1,000 ML IV SCH (04:18)
[2020-02-04 06:40] LABS: HEMATOCRIT 26.2 % (37.0-47.0); HEMOGLOBIN 8.5 g/dL (12.0-16.0); MCH 24.6 PG (27-31); MCHC 32.4 g/dL (33-37); MCV 75.7 FL (81-99); MPV 9.7 FL (7.4-10.4); RBC 3.46 XMIL (4.2-5.4); RDW 15.6 % (11.5-14.5); WBC 8.41 X1000 (4.8-10.8)
[2020-02-04] MEDS: HUMALOG SUBQ SCH ×2 (06:42→12:05)
[2020-02-04 07:06] LABS: AGAP 9; BUN 9 mg/dL (8-22); CALCIUM 8.8 mg/dL (8.8-10.2); CHLORIDE 106 mmol/L (98-107); COSMO 280; CREATININE 0.7 mg/dL (0.5-0.9); ESTIMATED GFR > 60; GLUCOSE 95 mg/dL (70-104); POTASSIUM 3.8 mmol/L (3.5-5.1); SODIUM 141 mmol/L (136-145); TCO2 26 mmol/L (25-35)
[2020-02-04] MEDS: KLONOPIN PO SCH (07:59)
[2020-02-04] MEDS: NORVASC PO SCH (07:59)
[2020-02-04] MEDS: CULTURELLE PO SCH (08:00)
[2020-02-04] MEDS: ICAR-C PO SCH (08:01)
[2020-02-04] MEDS: CYMBALTA PO SCH (08:01)
[2020-02-04] MEDS: INDOCIN PO SCH (08:02)
[2020-02-04] MEDS ORDERED: FOLIC ACID PO SCH (09:00)
[2020-02-04 13:15] VITALS: BP 154/80
[2020-02-04] MEDS ORDERED: LEVAQUIN 750 MG/D5W 750 MG/150 ML IVPB IV ONE (13:54)
[2020-02-04] MEDS ORDERED: LEVAQUIN PO ONE (14:48)
--- NOTE | 2020-02-04 17:13 | DISCHARGE SUMMARY ---
ADMISSION DATE: 01/30/2020 DISCHARGE DATE: 02/04/2020 DISCHARGE DIAGNOSES: 1. Sepsis secondary to Escherichia coli. 2. Severe left pyelonephritis. 3. Left acromioclavicular arthritis. 4. Fibromyalgia. 5. Morbid obesity. 6. Anxiety disorder. 7. Folic acid deficiency. 8. Iron deficiency anemia. 9. Type 2 diabetes. PROCEDURES PERFORMED: 1. Abdomen and pelvis CT scan dated 01/30/2020: Impression--severe left pyelonephritis. 2. Lung V/Q scan dated 02/01/2020: Impression--no pulmonary emboli. 3. Chest x-ray dated 02/01/2020: Impression--no acute abnormality. 4. Shoulder x-ray, left side, dated 02/01/2020: Impression--mild acromioclavicular arthritis. 5. Renal ultrasound dated 02/02/2020: Impression--mild enlargement of the left kidney related to the right. No evidence of hydronephrosis or perinephric fluid. 6. Chest x-ray dated 02/03/2020: No evidence of acute pathology by plain radiograph. 7. Upper extremity MRI dated 02/03/2020, the left arm/shoulder: Impression--mild degenerative changes, questionable anterior glenoid labral tear. CONSULTS: 1. Orthopedic Surgery Department, Dr. Shahid. HOSPITAL COURSE: A 44-year-old -[place] female with a past medical history of fibromyalgia, chronic back pain, hypertension, sickle cell trait, who presented to the emergency department for the second time in 24 hours, complaining of generalized body aches, fever as high as 103 degrees, along with some dysuria. She was admitted on 01/30/2020. She stated that she had been diagnosed with a UTI by her primary care doctor. She took some apparently amoxicillin in November followed by another antibiotic that she did not remember. She presented to the emergency department and was evaluated. She was tested for COVID-19. She received IV fluids, IV antibiotics and she was admitted. She was very anxious because she was unable to stay because she had children, grandchildren and foster children that she keeps at home and she had to make sure they were taken care off. She got her children situated and she returned to the emergency room. Temperature was 102.4 degrees on arrival to the emergency room. CT of the abdomen and pelvis showed pyelonephritis of the left kidney. She started receiving also medication for anxiety and medication for her pain. We had a positive blood culture that showed Escherichia coli, 1 out of 2, and we repeated the culture the next day and actually it has been negative for more than 48 hours. The Escherichia coli is sensitive to levofloxacin, Bactrim, Zosyn, cefazolin, Amoxicillin, and gentamicin. Since it is sensitive to levofloxacin that also can provide good treatment to the kidneys I will go ahead and switch it to that today. She is feeling much better today. She was evaluated because of her left shoulder pain that apparently is related to arthritis. Based on the MRI report there is also some degenerative changes and questionable anterior glenoid labral tear. Orthopedic Surgery tried to put an injection inside the joint with steroids, but she is allergic to methylprednisolone, so they decided to treat her with indomethacin to avoid any kind of allergic reaction for a few days, and they will follow this patient up as an outpatient. On the other hand, since this patient is no longer having fever and she is feeling better, she will be discharged home today. I discussed the case with the nurse practitioner who is taking care of Infectious Disease Department. I told her that she will be discharged today and I would like her to see this patient as an outpatient, so we have an appointment for this patient on 02/17/2020. On the other hand, Dr. Shahid will see this patient on 02/12/2020 at 9:30 a.m. to treat her shoulder. She will need to call her primary care doctor and see this doctor in a week. This has been explained to the patient and also the family was on the phone and I explained to them all the situation. They seem to understand and they agree with the plan. At the moment of discharge, this patient was in a stable medical condition. She still is complaining of left shoulder pain, which, again, has been evaluated already by Orthopedic Surgery Department. She is tolerating p.o. She is having bowel movements and, as per the patient, the burning sensation to urinate is basically gone. PHYSICAL EXAMINATION: Vital Signs: Temperature 98.1 degrees, pulse 80, respiratory rate 18, blood pressure 154/80, oxygen saturation 95% on room air. HEENT: Head normocephalic, no trauma. PERRLA. Neck: Supple. No JVD. No masses. Central trachea. Chest: Clear to auscultation. No wheezing. No rales. Abdomen: Soft. No CVA tenderness. Positive bowel sounds. Protuberant, obese. Extremities: Left shoulder pain to mobilization and palpation. No signs of infection. No edema, no clubbing, no cyanosis. Neurological: The patient is awake, alert, she is oriented x3. No focal neurological deficit. LABORATORY: WBC 8.4, hemoglobin 8.5, hematocrit 26.2, platelets 341,000. Sodium 141, potassium 3.8, chloride 106, bicarbonate 26, BUN 9, creatinine 0.7, glucose 95, calcium 8.8. DISCHARGE MEDICATIONS: Amlodipine 5 mg p.o. daily, clonazepam 1 mg p.o. b.i.d., duloxetine 60 mg p.o. daily, folic acid 1 mg p.o. daily, hydrochlorothiazide 25 mg p.o. daily, indomethacin 50 mg p.o. b.i.d., Icar C 1 tab p.o. b.i.d., Culturelle 1 tablet p.o. daily, levofloxacin 750 mg p.o. daily to complete 10 more days, metformin 500 mg p.o. b.i.d., omeprazole 40 mg p.o. daily, Percocet 5 one tablet p.o. every 4 hours as needed for pain, and pregabalin 75 mg p.o. at bedtime. TIME SPENT IN DISCHARGE: Time discharging this patient and discussing the case with the family through the phone around 35 minutes. cc: Daquan Batista MD
== END 2020-02-04 15:04 | disposition home or self-care (01) | DRG 872 ==
LOC: ED 10:19 → SUATTDRO 15:53 → 4N 15:53
PROVIDERS: ATTEND Internal Medicine